=== PATIENT | female | born 1965 ===

== ENCOUNTER 2017-05-26 15:51 | Emergency (ER) | payer BC ==
[2017-05-26 16:05] VITALS: BP 141/85; RESP 22; TEMP 97.7; O2SAT 100
--- NOTE | 2017-05-26 17:05 | ED PDOC ---
Addendum entered and electronically signed by Yonis Saab MD 05/26/17 19 :49: Addendum Addendum: 05/26/17 19:48 repeat ecg revelsl nsr rate of 69, no st changes or twi Original Note: HPI: Chest Pain Time Seen by Provider: 05/26/17 16:11 Chief Complaint (Nursing): Chest Pain Chief Complaint (Provider): Chest pain and shortness of breath History Per: Patient History/Exam Limitations: no limitations Onset/Duration Of Symptoms: Days (21 days) Current Symptoms Are (Timing): Still Present Quality: Pressure Associated Symptoms: denies: Nausea, Dyspnea, Diaphoresis, Syncope Modifying Factors: None Exacerbating Factors: None Alleviating Factors: None Additional History Per: Patient, Family Additional Complaint(s): 52 y/o female presents to the ED with worsened intermittent chest pain and shortness of breath, onset of 21 days ago sx worse at 10am this morning. She reports having a felling of anxiety, but denies any nausea or vomiting. Of note , she states that she had recently seen a doctor and had an echocardiogram performed, which came back normal. Past Medical History Reviewed: Historical Data, Nursing Documentation, Vital Signs Vital Signs: Last Vital Signs Temp 97.7 F 05/26/17 16:02 Pulse 97 H 05/26/17 17:10 Resp 22 05/26/17 16:02 BP 141/85 05/26/17 16:02 Pulse Ox 100 05/26/17 17:10 - Medical History PMH: Hypercholesterolemia - Surgical History Other surgeries: breast augmentation - Family History Family History: States: Unknown Family Hx - Social History Current smoker - smoking cessation education provided: No Ex-Smoker (has not smoked in the last 12 months): No Alcohol: Social Drugs: Denies - Allergies Allergies/Adverse Reactions: Allergies Allergy/AdvReac Type Severity Reaction Status Date / Time No Known Allergies Allergy Verified 05/26/17 16:05 Review of Systems ROS Statement: Except As Marked, All Systems Reviewed And Found Negative Cardiovascular: Positive for: Chest Pain Respiratory: Positive for: Shortness of Breath Gastrointestinal: Negative for: Nausea, Vomiting Psych: Positive for: Anxiety Physical Exam - Reviewed Nursing Documentation Reviewed: Yes Vital Signs Reviewed: Yes - Physical Exam Appears: Positive for: Well (anxious and fearful), Non-toxic, No Acute Distress Head Exam: Positive for: ATRAUMATIC, NORMAL INSPECTION, NORMOCEPHALIC Skin: Positive for: Normal Color, Warm, DRY Eye Exam: Positive for: EOMI, Normal appearance, PERRL ENT: Positive for: Normal ENT Inspection Neck: Positive for: Normal, Painless ROM Cardiovascular/Chest: Positive for: Regular Rate, Rhythm, Other. Negative for: Edema, Gallop, Murmur, Bradycardia, Tachycardia, Ectopy, Friction Rub, Irregularly Irregular Respiratory: Positive for: Normal Breath Sounds. Negative for: Decreased Breath Sounds, Accessory Muscle Use, Crackles, Rales, Rhonchi, Stridor, Wheezing , Respiratory Distress, Plerual Rub Pulses-Radial (L): 2+ Pulses-Radial (R): 2+ Gastrointestinal/Abdominal: Positive for: Normal Exam, Soft. Negative for: Tenderness Back: Positive for: Normal Inspection. Negative for: L CVA Tenderness, R CVA Tenderness Extremity: Positive for: Normal ROM. 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 Negative for: Motor/Sensory Deficits, Facial Droop - Laboratory Results Result Diagrams: 05/26/17 17:10 05/26/17 17:10 - ECG ECG: Positive for: Interpreted By Me, Viewed By Co ECG Rhythm: Positive for: Normal QRS, Normal ST Segment, Sinus Rhythm (normal ) . Negative for: ST/T Changes Rate: 97 O2 Sat by Pulse Oximetry: 100 (RA) Pulse Ox Interpretation: Normal - Radiology X-Ray: Interpreted by Me X-Ray Interpretation: No Acute Disease - Progress ED Course And Treament: no sx now a single neg trop r/o mi in this pt with over one day of cp. sx resolved with ativan. advise close f/u with pmd. advise close cards f/u. all of pt's questions were answered and pt agree's with plan pt leaves ambulatory an in good spirits. Re-evaluation Time: 18:58 Condition: Re-examined, Improved Medical Decision Making Medical Decision Making: Time: --16:47 Impression: --Palpitations Plan: --EKG --Ativan 1mg PO Reassess -- Scribe Attestation: Documented by Coleman Cardoso acting as a scribe for Yonis Saab MD. Provider Attestation: All medical record entries made by the Scribe were at my direction and personally dictated by me. I have reviewed the chart and agree that the record accurately reflects my personal performance of the history, physical exam, medical decision making, and the department course for this patient. I have also personally directed, reviewed, and agree with the discharge instructions and disposition. Disposition - Clinical Impression Clinical Impression: Chest pain, Heart palpitations - Patient ED Disposition Is Patient to be Admitted: No Counseled Patient/Family Regarding: Studies Performed, Diagnosis, Need For Followup - Disposition Referrals: [facility] [place] [Outside] (2 to 3 days or you doctor in 2 days) Disposition: Routine/Home Disposition Time: 19:00 Condition: GOOD Instructions: Chest Pain (ED), Palpitations (ED) Forms: [employer] (Sami)
[2017-05-26 17:12] VITALS: PULSE 97
[2017-05-26 17:38] LABS: ALB/GLOB RATIO 1.5 (1.0-2.1); ALT/SGPT 32 U/L (9-52); AST/SGOT 25 U/L (14-36); BLOOD UREA NITROGEN 17 mg/dl (7-17); CALCIUM 10.3 mg/dL (8.4-10.2); GFR AFRICAN-AMERICAN > 60; GFR NON-AFRICAN AMERICAN > 60; LIPASE 89 U/L (23-300)
[2017-05-26 17:41] LABS: BASO % 0.2 % (0.0-2.0); EOS # 0.1 K/uL (0.0-0.7); EOS % 1.5 % (0.0-4.0); HEMOGLOBIN 13.5 g/dL (12.0-16.0); LYMPH # 4.8 K/uL (1.0-4.3); MEAN CELL VOLUME 89.4 fl (81.0-99.0); MEAN CORPUSCULAR HEMOGLOBIN 28.7 pg (27.0-31.0); MEAN CORPUSCULAR HGB CONC 32.1 g/dL (33.0-37.0); MONO # 0.7 K/uL (0.0-0.8); MONO % 7.7 % (0.0-10.0); NEUT # 2.8 K/uL (1.8-7.0); NEUT % 33.6 % (50.0-75.0); NRBC % 0.1 % (0.0-0.0); RBC 4.71 Mil/uL (3.80-5.20); RED CELL DISTRIBUTION WIDTH 14.2 % (11.5-14.5); WHITE BLOOD COUNT 8.4 K/uL (4.8-10.8)
[2017-05-26 17:47] LABS: B-TYPE NATRIURETIC PEPTIDE 49.1 pg/ml (0-900)
[2017-05-26 18:34] LABS: PARTIAL THROMBOPLASTIN TIME 32.6 Seconds (25.6-37.1)
[2017-05-26 21:48] LABS: INR 0.94 (0.92-1.08); PROTHROMBIN TIME 10.5 SECONDS (9.7-12.2)
--- NOTE | 2017-05-27 09:35 | RAD ---
PROCEDURE: CHEST RADIOGRAPH, 1 VIEW HISTORY: cp COMPARISON: Comparison chest dated 03/13/2012. FINDINGS: Bilateral breast implants are present. Lung bundy are clear so far as can be seen. PLEURA: No pneumothorax or pleural fluid seen. CARDIOVASCULAR: Normal. OSSEOUS STRUCTURES: No significant abnormalities. VISUALIZED UPPER ABDOMEN: Normal. OTHER FINDINGS: None. IMPRESSION: No active disease. Bilateral breast implants
--- NOTE | 2017-05-28 12:59 | CARD ---
APPROVED REPORT EKG Measurement Heart [id number] <Conclusion> Normal sinus rhythm Cannot rule out Anterior infarct, age undetermined Abnormal ECG
== END 2017-05-26 19:35 | disposition home or self-care (01) ==
LOC: H.ER 15:51
DX: R07.89 Other chest pain (principal); R00.2 Palpitations; E78.00 Pure hypercholesterolemia, unspecified